=== PATIENT | female | born 1995 | race Caucasian/White ===

== ENCOUNTER 2020-02-20 | Inpatient (IN) ==
[2020-02-20] MEDS ORDERED: Naloxone 0.4 MG/ML INJ IVP PRN (00:19)
[2020-02-20] MEDS ORDERED: Metoclopramide 10 MG/2 ML VIAL IVP PRN ×2 (00:19→13:01)
[2020-02-20] MEDS ORDERED: Ondansetron 4 MG/2 ML VIAL IVP PRN (00:19)
[2020-02-20] MEDS ORDERED: Lidocaine 1% 20 ML MDV INFILT PRN (00:19)
[2020-02-20] MEDS ORDERED: *HR* FentaNYL (PF) 100 MCG/2 ML VIAL IVP PRN (00:19)
[2020-02-20] MEDS ORDERED: Famotidine 20 MG/2 ML VIAL IVP PRN (00:19)
[2020-02-20] MEDS ORDERED: Ringers Solution, Lactated 1,000 ML IVC SCH (00:30)
[2020-02-20 00:54] LABS: Basophils % 0.2 %; Eosinophils # 0.1 K/mcL (0.0-0.6); Eosinophils % 0.7 %; Hematocrit 36.8 % (35.3-44.9); Hemoglobin 12.2 g/dL (11.5-15.4); Lymphocytes # 2.4 K/mcL (0.6-4.6); Lymphocytes % 22.8 %; Mean Corpuscular HGB Conc 33.2 g/dL (31.6-35.5); Mean Corpuscular Volume 93.4 fL (83.0-100.0); Mean Platelet Volume 12.2 fL (9.4-12.4); Monocytes % 9.6 %; Neutrophils # 6.8 K/mcL (1.6-8.9); Platelet Count 168 K/mcL (140-400); Red Blood Count 3.94 M/mcL (3.82-4.97); Red Cell Distribution Width 13.3 % (11.5-14.5); Segmented Neutrophils % 65.7 %; White Blood Count 10.4 K/mcL (4.3-11.1)
[2020-02-20 01:00] LABS: Amphetamine Screen,Urine Negative ng/mL (Cutoff=1000); Barbiturate Screen,Urine Negative ng/mL (Cutoff=200); Benzodiazepines Screen,Urine Negative ng/mL (Cutoff=200); Cannabinoid Screen,Urine Negative ng/mL (Cutoff = 50); Cocaine Screen,Urine Negative ng/mL (Cutoff= 300); Opiate Screen,Urine Negative ng/mL (Cutoff=300); Phencyclidine Screen,Urine Negative ng/mL (Cutoff=25)
[2020-02-20] MEDS: Oxytocin 20 units/ LR 1000 mL 20 UNIT/1,000 ML BAG IVC SCH ×2 (01:13→12:11)
[2020-02-20] MEDS ORDERED: EPHEDrine 50 MG/ML VIAL IVP PRN (04:46)
[2020-02-20] MEDS ORDERED: Epidural Premix (fent/bupiv) 110 ML EP SCH (05:00)
[2020-02-20] MEDS ORDERED: *HR* HYDROmorphone (PF) 1 MG/ML SYRINGE ONE (11:22)
[2020-02-20] MEDS ORDERED: Lidocaine -MPF 2% 5 ML VIAL ONE (11:23)
[2020-02-20] MEDS ORDERED: *HR* FentaNYL (PF) 100 MCG/2 ML VIAL ONE (11:24)
[2020-02-20] MEDS ORDERED: *HR* HYDROmorphone (PF) 1 MG/ML SYRINGE IVP ONE (11:35)
[2020-02-20] MEDS ORDERED: Methylergonovine 0.2 MG/ML AMPUL IM ONE (11:36)
[2020-02-20] MEDS ORDERED: Rho Immune Globulin 1,500 UNIT SYRINGE IM PRN (15:07)
[2020-02-20] MEDS ORDERED: Oxytocin 20 units/ LR 1000 mL 20 UNIT/1,000 ML BAG IVC SCH (15:07)
[2020-02-20] MEDS ORDERED: Measles/Mumps/Rubella Vacc 0.5 ML VIAL SQ PRN (15:07)
[2020-02-20] MEDS ORDERED: Acetaminophen 325 MG TABLET PO PRN (15:07)
[2020-02-20] MEDS: Ibuprofen 600 MG TABLET PO PRN (16:54)
[2020-02-20] MEDS ORDERED: Benzocaine/Menthol 56 GM AEROSOL SPRAY TP PRN (18:02)
[2020-02-20] MEDS ORDERED: Benzocaine/Menthol 56 GM AEROSOL SPRAY TP ONE (18:04)
[2020-02-20] MEDS ORDERED: Lanolin 7 G OINT...G. TP PRN (20:14)
[2020-02-21] MEDS: Ibuprofen 600 MG TABLET PO PRN (01:08)
[2020-02-21] MEDS ORDERED: *HR* HYDROcodone/Acet 5/325 mg TABLET PO PRN (08:53)
[2020-02-21] MEDS ORDERED: NON-FORMULARY MEDICATION 1 EACH EACH (Prenatal Vits96/Iron Fum/Folic [Prenatal Tablet] 1 E PO SCH (09:00)
[2020-02-21] MEDS ORDERED: Prenatal Vit/FA 1 EACH TABLET PO SCH (09:00)
[2020-02-21 09:22] VITALS: BP 114/69
[2020-02-21 09:34] LABS: Basophils % 0.2 %; Eosinophils # 0.1 K/mcL (0.0-0.6); Eosinophils % 0.5 %; Hematocrit 33.1 % (35.3-44.9); Hemoglobin 10.8 g/dL (11.5-15.4); Immature Granulocytes % 0.6 % (0-4); Lymphocytes # 2.1 K/mcL (0.6-4.6); Lymphocytes % 17.1 %; Mean Corpuscular HGB Conc 32.6 g/dL (31.6-35.5); Mean Corpuscular Hemoglobin 30.5 pg (28.0-33.3); Mean Corpuscular Volume 93.5 fL (83.0-100.0); Mean Platelet Volume 12.1 fL (9.4-12.4); Monocytes % 8.1 %; Platelet Count 155 K/mcL (140-400); Red Blood Count 3.54 M/mcL (3.82-4.97); Red Cell Distribution Width 13.5 % (11.5-14.5); Segmented Neutrophils % 73.5 %; White Blood Count 12.2 K/mcL (4.3-11.1)
== END 2020-02-21 13:36 | disposition home or self-care (01) | DRG 768 ==
LOC: 1NENULAB 00:17 → 1NENUOBS 14:18
PROVIDERS: ADMIT Student in an Organized Health Care Education/Training Program; ATTEND Student in an Organized Health Care Education/Training Program